=== PATIENT | male | born 1955 | race African-American/Black ===

== ENCOUNTER 2020-07-15 10:10 | Emergency (ER) | payer OTHER ==
[~2020-07-15] VITALS: Ht 170.2 cm; Wt 81.6 kg
--- NOTE | 2020-07-15 10:10 | NUR ---
Patient BIBA BLS on a 5150 hold, transferred to [facility]. RN evaluating patient.
[2020-07-15 10:11] VITALS: BP 148/115
--- NOTE | 2020-07-15 10:23 | NUR ---
Dr. Camacho is evaluating the patient.
--- NOTE | 2020-07-15 10:45 | NUR ---
PT LEFT FROM FACILITY FROM [facility]. [place] CALLED AND NOTIFIED.
--- NOTE | 2020-07-15 10:58 | NUR ---
Grady ESPARZA escorted the patient back to [facility], returned to [facility].
[2020-07-15] MEDS: HALOPERIDOL IM 5 MG/ML VIAL IM ONE (11:07)
--- NOTE | 2020-07-15 11:07 | NUR ---
PT BROUGHT BACK INTO ER BY SERGO ESPARZA
[2020-07-15 12:30] LABS: BASOPHILS # (AUTO) 0.1 K/uL (0.00-0.22); EOSINOPHILS # (AUTO) 0.1 K/uL (0-0.4); EOSINOPHILS % (AUTO) 1.6 % (0.0-4.0); HEMOGLOBIN 14.2 g/dL (12.0-18.0); LYMPHOCYTES % (AUTO) 25.7 % (20.5-51.1); MEAN CORPUSCULAR HEMOGLOBIN 29 pg (27-31); MEAN CORPUSCULAR HGB CONC 33 g/dL (33-37); MEAN CORPUSCULAR VOLUME 89.2 fL (80-94); MONOCYTES # (AUTO) 0.5 K/uL (0.8-1.0); MONOCYTES % (AUTO) 7.1 % (1.7-9.3); NEUTROPHILS % (AUTO) 64.6 % (42.2-75.2); PLATELET COUNT (AUTO) 292 K/uL (140-450); RED BLOOD CELL COUNT(AUTO) 4.82 MIL/uL (4.20-6.10); RED CELL DISTRIBUTION WIDTH 14.2 % (11.6-13.7); WHITE BLOOD COUNT (AUTO) 7.7 K/uL (4.8-10.8)
[2020-07-15 12:46] LABS: ALBUMIN 3.9 g/dL (3.4-5.0); ANION GAP 13.9 (8-16); ASPARTATE AMINOTRANSFERASE 26 U/L (15-37); CARBON DIOXIDE 26.8 mmol/L (21-32); CHLORIDE 102 mmol/L (98-107); GFR ARICAN-AMERICAN 97 mL/min (>90); GLUCOSE 83 mg/dL (74-106); POTASSIUM 3.7 mmol/L (3.5-5.1); SODIUM SERUM 139 mmol/L (136-145); TOTAL BILIRUBIN 0.3 mg/dL (0.0-1.0); UREA NITROGEN, BLOOD 13 mg/dL (7-18)
[2020-07-15 13:02] LABS: SALICYLATE < 2.8 mg/dL (2.8-20.0)
[2020-07-15 13:03] LABS: ACETAMINOPHEN < 0.5 ug/ml (10-30)
[2020-07-15] MEDS: LORazepam 1 MG TAB PO ONE (14:22)
[2020-07-15 14:38] LABS: BARBITURATE, URINE NEGATIVE ng/ml (NEG <=200); BENZODIAZEPINE, URINE NEGATIVE ng/mL (NEG <=200); CANNABINOID, URINE NEGATIVE ng/mL (NEG <=50); COCAINE, URINE NEGATIVE ng/mL (NEG <=300); OPIATE, URINE NEGATIVE ng/mL (NEG <=2000); PHENCYCLIDINE SCREEN,URINE NEGATIVE ng/mL (NEG <=25)
--- NOTE | 2020-07-15 19:00 | NUR ---
RECEIVED REPORT FROM ACE LUGO. ASSUMED CARE AT THIS TIME. PT SEATED UPRIGHT IN BED AND EATING DINNER. WILL CONTINUE TO MONITOR.
--- NOTE | 2020-07-15 19:45 | NUR ---
PT ATE 100% OF DINNER PROVIDED.
--- NOTE | 2020-07-15 19:55 | NUR ---
S/W FAIZAN AT [facility] TO GIVE BRIEF REPORT ON PT STATUS. PER FAIZAN, PT HAS BEEN ACCEPTED GOING TO BED 120A WITH ACCEPTING DR. PATRICK.
--- NOTE | 2020-07-15 20:20 | NUR ---
REPORT GIVEN TO ACE MAJOR AT [facility].
--- NOTE | 2020-07-15 21:45 | NUR ---
PT SEEN WITH EYES CLOSED. VISIBLE CHEST RISE AND FALL NOTED. 1:[address] ALL NEEDS MET AT THIS TIME. WILL CONTINUE TO MONITOR.
--- NOTE | 2020-07-15 22:22 | NUR ---
[facility] AT BEDSIDE FOR TRANSPORT
--- NOTE | 2020-07-15 22:26 | NUR ---
PT TRANSPORTED TO [facility] AT THIS TIME. CALLED ACE MAJOR TO LET HER KNOW THAT PT IS EN ROUTE.
[2020-07-15 22:29] VITALS: BP 133/85
== END 2020-07-15 22:36 ==
LOC: MED 10:10
DX: F20.9 Schizophrenia, unspecified (principal); Z20.828 Contact with and (suspected) exposure to other viral communicable diseases; F29 Unspecified psychosis not due to a substance or known physiological condition; Z98.890 Other specified postprocedural states
CPT/HCPCS: 36415; 80053; 80305; 85025; 87426; 96372; 99283; G0480; G0482; J1630; U0003